=== PATIENT | male | born 1970 | race Two or more races ===

== ENCOUNTER 2019-08-15 19:28 | Observation (INO) | payer SELFPAY ==
[~2019-08-15] VITALS: Ht 165.1 cm; Wt 55.9 kg
[2019-08-15] MEDS ORDERED: IV NORMAL SALINE 1000ML BAG 1,000 ML IV SCH (19:58)
--- NOTE | 2019-08-15 20:03 | PHYS DOC ---
Past Medical History Past Medical History: No Pertinent History, CHF Past Surgical History: Other Additional Past Surgical Histo: "NECK SURGERY IN [place]" Smoking Status: Current Every Day Smoker Alcohol Use: Heavy General Adult EDM: Chief Complaint: CHEST PAIN HPI: HPI: Patient is a 49 year old male who presents with left chest pain that started this morning around 9:00 without radiation and is sharp. Patient states he is homeless but sleeps on a friend's couch nightly. 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 He does smoke cigarettes. He denies any other history or drug use. Patient denies abdominal pain, nausea, vomiting, diarrhea, fever, cough, dizziness, headache, LOC, vision changes, weakness. EMS gave the patient 324 mg of aspirin prior to arrival. EMS gave the patient 2 nitros and patient states there was some relief but he still rating his pain a 10 out of 10. Review of Systems: Review of Systems: Constitutional: Denies fever or chills. [] Eyes: Denies change in visual acuity. [] HENT: Denies nasal congestion or sore throat. [] Respiratory: Denies cough or shortness of breath. [] Cardiovascular: chest pain or denies edema. [] GI: Denies abdominal pain, nausea, vomiting, bloody stools or diarrhea. [] : Denies dysuria. [] Musculoskeletal: Denies back pain or joint pain. [] Integument: Denies rash. [] Neurologic: Denies headache, focal weakness or sensory changes. [] Endocrine: Denies polyuria or polydipsia. [] Lymphatic: Denies swollen glands. [] Psychiatric: Denies depression or anxiety. [] Heart Score: HEART Score for Chest Pain: HEART Score for Chest Pain Response (Comments) Value History Slighlty/Non-Suspicious 0 ECG Normal 0 Age >45 - < 65 1 Risk Factors 1 or 2 Risk Factors 1 Troponin < Normal Limit 0 Total 2 Risk Factors: Risk Factors: DM, Current or recent (<one month) smoker, HTN, HLP, family history of CAD, obesity. Risk Scores: Score 0 - 3: 2.5% MACE over next 6 weeks - Discharge Home Score 4 - 6: 20.3% MACE over next 6 weeks - Admit for Clinical Observation Score 7 - 10: 72.7% MACE over next 6 weeks - Early Invasive Strategies Physical Exam: PE: Constitutional: Well developed, well nourished, no acute distress, non-toxic appearance. [] HENT: Normocephalic, atraumatic, bilateral external ears normal, oropharynx moist, no oral exudates, nose normal. [] Eyes: PERRLA, EOMI, conjunctiva normal, no discharge. [] Neck: Normal range of motion, no tenderness, supple, no stridor. [] Cardiovascular:Heart rate regular rhythm, no murmur [] Lungs & Thorax: Bilateral upper breath sounds clear and lower diminished to auscultation [] Abdomen: Bowel sounds normal, soft, no tenderness, no masses, no pulsatile masses. [] Skin: Warm, dry, no erythema, no rash. [] Back: No tenderness, no CVA tenderness. [] Extremities: No tenderness, no cyanosis, no clubbing, ROM intact, no edema. [] Neurologic: Alert and oriented X 3, normal motor function, normal sensory function, no focal deficits noted. [] Psychologic: Affect normal, judgement normal, mood normal. [] Current Patient Data: Vital Signs: Vital Signs Date Time Temp Pulse Resp B/P (MAP) Pulse Ox O2 Delivery O2 Flow Rate FiO2 08/15/19 19:45 98.2 89 18 139/97 (111 82 Room Air 98.2 EKG: EK and read by Dr Storey as NSR and no STEMI[] Radiology/Procedures: Radiology/Procedures: [] Impression: [facility] [address] [place], [place] [id number] IMAGING REPORT Signed PATIENT: NAT CARRANZAACCOUNT: [id number] : 1970 LOCATION: ER AGE: 49 SEX: M EXAM STATUS: REG ER ORD. PHYSICIAN: LAWSON MATA APRN REASON: chest pain PROCEDURE: PORTABLE CHEST 1V EXAM: CHEST ONE VIEW. HISTORY: Chest pain. COMPARISON: None. FINDINGS: A frontal view of the chest is obtained. There are no confluent infiltrates. There is no pneumothorax or pleural effusion. The heart is not enlarged. Chronic bilateral rib fractures are noted. IMPRESSION: 1. No confluent infiltrates. Electronically signed by: Rik Phelps MD (08/15/2019 8:34 PM) [facility] DICTATED and SIGNED BY: DENISE PHELPS MD DATE: 08/15/192033 [facility] [address] [place] [address] IMAGING REPORT Signed PATIENT: NAT CARRANZAACCOUNT: [id number] : 1970 LOCATION: ER AGE: 49 SEX: M EXAM STATUS: REG ER ORD. PHYSICIAN: LAWSON MATA APRN REASON: ELEVATED LFT'S, HX ETOH PROCEDURE: CT ABD PELV W/ IV CONTRST ONLY CT abdomen and pelvis with contrast PQRS statement: CT scans at this facility use dose reduction including either automated exposure control, iterative reconstructions, and /or weight based radiation dosing via mA and kV modification when appropriate to reduce radiation dose to as low as reasonably achievable. Contrast: 75 mL Omnipaque 300 intravenous contrast. HISTORY: Elevated liver function tests. History of alcohol abuse. Abdomen findings: Coronary calcified plaque. Lung bases unremarkable. Lumbar disc disease with disc bulges contributing to spinal canal stenoses L4 L5 S1. Hypodense liver likely fatty. At the medial right hepatic lobe there is a 4 mm hypodense lesion coronal image 28 to small characterize per ACR guidelines no further workup is necessary, this is most likely small cyst or hemangioma. Spleen, pancreas, gallbladder, adrenal glands and left kidney unremarkable. Right renal oval 1.3 cm hypodensity is indeterminate with internal density of 25 units. Abdominal aortic calcified plaque. No abdominal fluid or adenopathy. Appendix is negative. There is wall thickening of the rectosigmoid colon and hypervascular mucosal enhancement consistent with colitis. Pelvis findings: Prominent distention urinary bladder. Rectosigmoid wall thickening and hypervascular mucosal enhancement. Prostate calcifications. No pelvic fluid or adenopathy. Bones unremarkable. IMPRESSION: 1. Distal colitis of the rectosigmoid colon. 2. Appendix is negative. 3. 1.3 cm right renal hypodense lesion with an internal density 25 units. This is indeterminate and could represent a hemorrhagic cyst or solid nodule. Per ACR guidelines consider further assessment with MR imaging. 4. Hypodense liver likely fatty. Electronically signed by: Yara Ruiz MD (08/15/2019 9:22 PM) [facility] DICTATED and SIGNED BY: YARA RUIZ MD DATE: 08/15/192121 Course & Med Decision Making: Course & Med Decision Making Pertinent Labs and Imaging studies reviewed. (See chart for details) Alert and oriented. Speaks in full clear sentences. Ambulatory with a steady gait. No extremity edema. Abdomen soft and nontender. Lungs are clear in upper lobes and diminished in lower lobes. Vital signs are within normal limits. Elevated troponin of 0.090. LFT's are elevated. Patient admitted to Dr Meade. [] Alba Disclaimer: Alba Disclaimer: This electronic medical record was generated, in whole or in part, using a voice recognition dictation system. 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
[2019-08-15 20:05] LABS: BASO # 0.1 x10^3/uL (0.0-0.2); BASO % 1 % (0-3); EOS % 1 % (0-3); HEMATOCRIT 37.9 % (39.0-53.0); HEMOGLOBIN 13.4 g/dL (13.0-17.5); LYMPH # 1.8 x10^3/uL (1.0-4.8); LYMPH % 37 % (24-48); MEAN CORPUSCULAR HEMOGLOBIN 37 pg (25-35); MEAN CORPUSCULAR HGB CONC 35 g/dL (31-37); MEAN CORPUSCULAR VOLUME 103 fL (79-100); MONO # 0.8 x10^3/uL (0.0-1.1); MONO % 16 % (0-9); NEUT # 2.2 x10^3/uL (1.8-7.7); NEUT % 45 % (31-73); PLATELET COUNT 80 x10^3/uL (140-400); RED BLOOD COUNT 3.67 x10^6/uL (4.30-5.70); RED CELL DISTRIBUTION WIDTH 13.1 % (11.5-14.5); WHITE BLOOD COUNT 4.9 x10^3/uL (4.0-11.0)
[2019-08-15 20:14] LABS: PROTHROMBIN TIME PATIENT 11.9 SEC (11.7-14.0)
[2019-08-15] MEDS ORDERED: fentaNYL PF VIAL 100 MCG/2 ML VIAL IVP ONE (20:15)
[2019-08-15 20:19] LABS: BILIRUBIN,URINE NEGATIVE (NEG); CLARITY,URINE CLEAR; COLOR,URINE YELLOW; NITRITE,URINE NEGATIVE (NEG); PH,URINE 6.5 (<5.0-8.0); PROTEIN,URINE NEGATIVE (NEG-TRACE); UROBILINOGEN,URINE 0.2 mg/dL (0.2 mg/dL)
[2019-08-15 20:21] LABS: CALCIUM 9.3 mg/dL (8.5-10.1); CREATININE 0.7 mg/dL (0.7-1.3); GFR 119.9; POTASSIUM 3.4 mmol/L (3.5-5.1)
[2019-08-15 20:24] LABS: BACTERIA,URINE 0 /HPF (0-FEW); RBC,URINE 0 /HPF (0-2); WBC,URINE 0 /HPF (0-4)
[2019-08-15 20:26] LABS: ALBUMIN 3.5 g/dL (3.4-5.0); ALBUMIN/GLOBULIN RATIO 1.1 (1.0-1.7); BARBITURATES NEG (NEG); BENZODIAZEPINES NEG (NEG); CANNABINOIDS NEG (NEG); COCAINE NEG (NEG); METHADONE NEG (NEG); OPIATES NEG (NEG); PHENCYCLIDINE NEG (NEG); TOTAL BILIRUBIN 0.5 mg/dL (0.2-1.0); TOTAL PROTEIN 6.8 g/dL (6.4-8.2)
[2019-08-15 20:27] LABS: AMPHETAMINE/METHAMPHETAMINE NEG (NEG)
[2019-08-15 20:34] LABS: PLT ESTIMATE DECREASED (ADEQUATE)
--- NOTE | 2019-08-15 20:37 | RAD ---
EXAM: CHEST ONE VIEW. HISTORY: Chest pain. COMPARISON: None. FINDINGS: A frontal view of the chest is obtained. There are no confluent infiltrates. There is no pneumothorax or pleural effusion. The heart is not enlarged. Chronic bilateral rib fractures are noted. IMPRESSION: 1. No confluent infiltrates. Electronically signed by: Rik Phelps MD (08/15/2019 8:34 PM) [facility]
[2019-08-15] MEDS ORDERED: IOHEXOL 300 MG/ML 100ML VIAL. IV ONE (21:00)
[2019-08-15] MEDS ORDERED: ONDANSETRON PF 4 MG/2 ML VIAL. IV PRN ×2 (21:15→21:30)
--- NOTE | 2019-08-15 21:25 | RAD ---
CT abdomen and pelvis with contrast PQRS statement: CT scans at this facility use dose reduction including either automated exposure control, iterative reconstructions, and /or weight based radiation dosing via mA and kV modification when appropriate to reduce radiation dose to as low as reasonably achievable. Contrast: 75 mL Omnipaque 300 intravenous contrast. HISTORY: Elevated liver function tests. History of alcohol abuse. Abdomen findings: Coronary calcified plaque. Lung bases unremarkable. Lumbar disc disease with disc bulges contributing to spinal canal stenoses L4 L5 S1. Hypodense liver likely fatty. At the medial right hepatic lobe there is a 4 mm hypodense lesion coronal image 28 to small characterize per ACR guidelines no further workup is necessary, this is most likely small cyst or hemangioma. Spleen, pancreas, gallbladder, adrenal glands and left kidney unremarkable. Right renal oval 1.3 cm hypodensity is indeterminate with internal density of 25 units. Abdominal aortic calcified plaque. No abdominal fluid or adenopathy. Appendix is negative. There is wall thickening of the rectosigmoid colon and hypervascular mucosal enhancement consistent with colitis. Pelvis findings: Prominent distention urinary bladder. Rectosigmoid wall thickening and hypervascular mucosal enhancement. Prostate calcifications. No pelvic fluid or adenopathy. Bones unremarkable. IMPRESSION: 1. Distal colitis of the rectosigmoid colon. 2. Appendix is negative. 3. 1.3 cm right renal hypodense lesion with an internal density 25 units. This is indeterminate and could represent a hemorrhagic cyst or solid nodule. Per ACR guidelines consider further assessment with MR imaging. 4. Hypodense liver likely fatty. Electronically signed by: Theo Morgan MD (08/15/2019 9:22 PM) [facility]
[2019-08-15] MEDS ORDERED: fentaNYL PF VIAL 100 MCG/2 ML VIAL IV PRN (21:30)
[2019-08-15] MEDS ORDERED: CONTRAST GIVEN. MC PRN (21:30)
[2019-08-15] MEDS ORDERED: CIPROFLOXACIN 400MG PREMIX 200 ML IV ONE (22:00)
[2019-08-15 23:15] VITALS: BP 145/93
[2019-08-16] VITALS (7 sets, daily range): BP systolic 122–162; BP diastolic 74–98
[2019-08-16] MEDS ORDERED: MORPHINE IR 15 MG TABLET PO PRN (04:15)
--- NOTE | 2019-08-16 07:15 | EKG ---
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
[2019-08-16] MEDS ORDERED: IPRATRPIUM/ALBUTEROL 0.5/2.5MG 3 ML NEBU. NEB SCH (08:00)
--- NOTE | 2019-08-16 08:19 | PDOC1 ---
History and Physical Date of Admission Date of Admission DATE: 08/16/19 TIME: 08:13 Identification/Chief Complaint Chief Complaint chest pain Source Source: Chart review, Patient History of Present Illness History of Present Illness Mr. Joyner, is a 49 year old male who presents with left chest pain that started this morning around 9:00 without radiation and is sharp. Patient states he is homeless but sleeps on a friend's couch nightly. 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 He does smoke cigarettes. He denies any other history or drug use. Patient denies abdominal pain, nausea, vomiting, diarrhea, fever, cough, dizziness, headache, LOC, vision changes, weakness. EMS gave the patient 324 mg of aspirin prior to arrival. EMS gave the patient 2 nitros and patient states there was some relief but he still rating his pain a 10 out of 10. Past Medical History Cardiovascular: No pertinent hx Pulmonary: No pertinent hx Infectious disease: No pertinent hx Renal/: No pertinent hx Family History Family History: No Significant Social History Smoke: No ALCOHOL: none Drugs: None Current Problem List Problem List Problems Medical Problems: (1) Elevated troponin Status: Acute Current Medications Current Medications Current Medications Sodium Chloride 1,000 ml @ 1,000 mls/hr Q1H IV Last administered on 08/15/19at 19:58; Start 08/15/19 at 19:58; Stop 08/15/19 at 20:57; Status DC Fentanyl Citrate (Fentanyl 2ml Vial) 50 mcg 1X ONCE IVP Last administered on 08/15/19at 20:16; Start 08/15/19 at 20:15; Stop 08/15/19 at 20:16; Status DC Iohexol (Omnipaque 300 Mg/ml) 75 ml 1X ONCE IV Last administered on 08/15/19at 21:06; Start 08/15/19 at 21:00; Stop 08/15/19 at 21:15; Status DC Ondansetron HCl (Zofran) 4 mg PRN Q8HRS PRN IV NAUSEA/VOMITING 1st choice; Start 08/15/19 at 21:15; Stop 08/16/19 at 21:14; Status Cancel Albuterol/ Ipratropium (Duoneb) 3 ml RTQID NEB ; Start 08/16/19 at 08:00; Stop 08/17/19 at 07:59; Status Cancel Info (CONTRAST GIVEN -- Rx MONITORING) 1 each PRN DAILY PRN MC SEE COMMENTS; Start 08/15/19 at 21:30; Stop 08/17/19 at 21:29 Ondansetron HCl (Zofran) 4 mg PRN Q8HRS PRN IV NAUSEA/VOMITING 1ST CHOICE; Start 08/15/19 at 21:30; Stop 08/16/19 at 21:29 Fentanyl Citrate (Fentanyl 2ml Vial) 50 mcg PRN Q1HR PRN IV SEVERE PAIN 7-10 Last administered on 08/15/19at 23:58; Start 08/15/19 at 21:30; Stop 08/16/19 at 21:29 Ciprofloxacin/ Dextrose 200 ml @ 200 mls/hr 1X ONCE IV Last administered on 08/16/19at 00:00; Start 08/15/19 at 22:00; Stop 08/15/19 at 22:59; Status DC Metronidazole 100 ml @ 100 mls/hr 1X ONCE IV ; Start 08/15/19 at 22:00; Stop 08/15/19 at 22:59; Status DC Morphine Sulfate (Morphine Ir) 15 mg PRN Q4HRS PRN PO SEVERE PAIN 7-10; Start 08/16/19 at 04:15 Pantoprazole Sodium (Protonix) 40 mg DAILYAC PO ; Start 08/16/19 at 08:30 Allergies Allergies: Coded Allergies: No Known Drug Allergies (Unverified , 08/15/19) ROS General: No: Chills, Night Sweats, Fatigue, Malaise, Appetite, Other PSYCHOLOGICAL ROS: No: Anxiety, Behavioral Disorder, Concentration difficultie, Decreased libido, Depression, Disorientation, Hallucinations, Hostility, Irritablity, Memory difficulties, Mood Swings, Obsessive thoughts, Physical abuse, Sexual abuse, Sleep disturbances, Suicidal ideation, Other Eyes: No Blurry vision, No Decreased vision, No Double vision, No Dry eyes, No Excessive tearing, No Eye Pain, No Itchy Eyes, No Loss of vision, No Photophobia, No Scotomata, No Uses contacts, No Uses glasses, No Other HEENT: No: Heacaches, Visual Changes, Hearing change, Nasal congestion, Nasal discharge, Oral lesions, Sinus pain, Sore Throat, Epistaxis, Sneezing, Snoring, Tinnitus, Vertigo, Vocal changes, Other Respiratory: No: Cough, Hemoptysis, Orthopnea, Pleuritic Pain, Shortness of breath, SOB with excertion, Sputum Changes, Stridor, Tachypnea, Wheezing, Other Gastrointestinal: No Nausea, No Vomiting, No Abdominal Pain, No Diarrhea, No Constipation, No Melena, No Hematochezia, No Other Genitourinary: No Dysuria, No Frequency, No Incontinence, No Hematuria, No Retention, No Discharge, No Urgency, No Pain, No Flank Pain, No Other, No , No , No , No , No , No , No Musculoskeletal: No Gait Disturbance, No Joint Pain, No Joint Stiffness, No Joint Swelling, No Muscle Pain, No Muscular Weakness, No Pain In:, No Swelling In:, No Other Neurological: No Behavorial Changes, No Bowel/Bladder ControlChng, No Confusion, No Dizziness, No Gait Disturbance, No Headaches, No Impaired Coord/balance, No Memory Loss, No Numbness/Tingling, No Seizures, No Speech Problems, No Tremors, No Visual Changes, No Weakness, No Other Skin: No Dry Skin, No Eczema, No Hair Changes, No Lumps, No Mole Changes, No Mottling, No Nail Changes, No Pruritus, No Rash, No Skin Lesion Changes, No Other, No Acne Physical Exam General: Alert, Oriented X3, Cooperative, No acute distress HEENT: PERRLA, EOMI, Mucous membr. moist/pink Lungs: Clear to auscultation Heart: S1S2, RRR, no murmurs Abdomen: Normal bowel sounds, Soft Extremities: No clubbing, Normal pulses Skin: No rashes, No breakdown Neuro: Normal speech, Normal tone, Cranial nerves 3-12 NL Vitals Vitals Vital Signs Date Time Temp Pulse Resp B/P (MAP) Pulse Ox O2 Delivery O2 Flow Rate FiO2 08/16/19 03:10 98.2 86 14 122/74 (90) 97 Room Air 98.2 Labs Labs Laboratory Tests Test 08/15/19 19:50 08/16/19 04:35 White Blood Count 4.9 x10^3/uL (4.0-11.0) Red Blood Count 3.67 x10^6/uL (4.30-5.70) Hemoglobin 13.4 g/dL (13.0-17.5) Hematocrit 37.9 % (39.0-53.0) Mean Corpuscular Volume 103 fL (79-100) Mean Corpuscular Hemoglobin 37 pg (25-35) Mean Corpuscular Hemoglobin Concent 35 g/dL (31-37) Red Cell Distribution Width 13.1 % (11.5-14.5) Platelet Count 80 x10^3/uL (140-400) Neutrophils (%) (Auto) 45 % (31-73) Lymphocytes (%) (Auto) 37 % (24-48) Monocytes (%) (Auto) 16 % (0-9) Eosinophils (%) (Auto) 1 % (0-3) Basophils (%) (Auto) 1 % (0-3) Neutrophils # (Auto) 2.2 x10^3/uL (1.8-7.7) Lymphocytes # (Auto) 1.8 x10^3/uL (1.0-4.8) Monocytes # (Auto) 0.8 x10^3/uL (0.0-1.1) Eosinophils # (Auto) 0.0 x10^3/uL (0.0-0.7) Basophils # (Auto) 0.1 x10^3/uL (0.0-0.2) Platelet Estimate Decreased (ADEQUATE) Prothrombin Time 11.9 SEC (11.7-14.0) Prothromb Time International Ratio 0.9 (0.8-1.1) Urine Collection Type Unknown Urine Color Yellow Urine Clarity Clear Urine pH 6.5 (<5.0-8.0) Urine Specific [place] <=1.005 (1.000-1.030) Urine Protein Negative mg/dL (NEG-TRACE) Urine Glucose (UA) Negative mg/dL (NEG) Urine Ketones (Stick) Negative mg/dL (NEG) Urine Blood Negative (NEG) Urine Nitrite Negative (NEG) Urine Bilirubin Negative (NEG) Urine Urobilinogen Dipstick 0.2 mg/dL (0.2 mg/dL) Urine Leukocyte Esterase Negative (NEG) Urine RBC 0 /HPF (0-2) Urine WBC 0 /HPF (0-4) Urine Bacteria 0 /HPF (0-FEW) Sodium Level 133 mmol/L (136-145) Potassium Level 3.4 mmol/L (3.5-5.1) Chloride Level 93 mmol/L (98-107) Carbon Dioxide Level 25 mmol/L (21-32) Anion Gap 15 (6-14) Blood Urea Nitrogen 5 mg/dL (8-26) Creatinine 0.7 mg/dL (0.7-1.3) Estimated GFR (Cockcroft-Gault) 119.9 BUN/Creatinine Ratio 7 (6-20) Glucose Level 166 mg/dL (70-99) Calcium Level 9.3 mg/dL (8.5-10.1) Total Bilirubin 0.5 mg/dL (0.2-1.0) Aspartate Amino Transf (AST/SGOT) 106 U/L (15-37) Alanine Aminotransferase (ALT/SGPT) 86 U/L (16-63) Alkaline Phosphatase 73 U/L (46-116) Troponin I Quantitative 0.090 ng/mL (0.000-0.055) 0.095 ng/mL (0.000-0.055) JY-Kob-N-Type Natriuretic Peptide 16 pg/mL (0-124) Total Protein 6.8 g/dL (6.4-8.2) Albumin 3.5 g/dL (3.4-5.0) Albumin/Globulin Ratio 1.1 (1.0-1.7) Lipase 453 U/L (73-393) Urine Opiates Screen Neg (NEG) Urine Methadone Screen Neg (NEG) Urine Barbiturates Neg (NEG) Urine Phencyclidine Screen Neg (NEG) Urine Amphetamine/Methamphetamine Neg (NEG) Urine Benzodiazepines Screen Neg (NEG) Urine Cocaine Screen Neg (NEG) Urine Cannabinoids Screen Neg (NEG) Ethyl Alcohol Level 464 mg/dL (0-10) Urine Ethyl Alcohol Pos (NEG) Laboratory Tests Test 08/15/19 19:50 08/16/19 04:35 White Blood Count 4.9 x10^3/uL (4.0-11.0) Red Blood Count 3.67 x10^6/uL (4.30-5.70) Hemoglobin 13.4 g/dL (13.0-17.5) Hematocrit 37.9 % (39.0-53.0) Mean Corpuscular Volume 103 fL (79-100) Mean Corpuscular Hemoglobin 37 pg (25-35) Mean Corpuscular Hemoglobin Concent 35 g/dL (31-37) Red Cell Distribution Width 13.1 % (11.5-14.5) Platelet Count 80 x10^3/uL (140-400) Neutrophils (%) (Auto) 45 % (31-73) Lymphocytes (%) (Auto) 37 % (24-48) Monocytes (%) (Auto) 16 % (0-9) Eosinophils (%) (Auto) 1 % (0-3) Basophils (%) (Auto) 1 % (0-3) Neutrophils # (Auto) 2.2 x10^3/uL (1.8-7.7) Lymphocytes # (Auto) 1.8 x10^3/uL (1.0-4.8) Monocytes # (Auto) 0.8 x10^3/uL (0.0-1.1) Eosinophils # (Auto) 0.0 x10^3/uL (0.0-0.7) Basophils # (Auto) 0.1 x10^3/uL (0.0-0.2) Platelet Estimate Decreased (ADEQUATE) Prothrombin Time 11.9 SEC (11.7-14.0) Prothromb Time International Ratio 0.9 (0.8-1.1) Urine Collection Type Unknown Urine Color Yellow Urine Clarity Clear Urine pH 6.5 (<5.0-8.0) Urine Specific [place] <=1.005 (1.000-1.030) Urine Protein Negative mg/dL (NEG-TRACE) Urine Glucose (UA) Negative mg/dL (NEG) Urine Ketones (Stick) Negative mg/dL (NEG) Urine Blood Negative (NEG) Urine Nitrite Negative (NEG) Urine Bilirubin Negative (NEG) Urine Urobilinogen Dipstick 0.2 mg/dL (0.2 mg/dL) Urine Leukocyte Esterase Negative (NEG) Urine RBC 0 /HPF (0-2) Urine WBC 0 /HPF (0-4) Urine Bacteria 0 /HPF (0-FEW) Sodium Level 133 mmol/L (136-145) Potassium Level 3.4 mmol/L (3.5-5.1) Chloride Level 93 mmol/L (98-107) Carbon Dioxide Level 25 mmol/L (21-32) Anion Gap 15 (6-14) Blood Urea Nitrogen 5 mg/dL (8-26) Creatinine 0.7 mg/dL (0.7-1.3) Estimated GFR (Cockcroft-Gault) 119.9 BUN/Creatinine Ratio 7 (6-20) Glucose Level 166 mg/dL (70-99) Calcium Level 9.3 mg/dL (8.5-10.1) Total Bilirubin 0.5 mg/dL (0.2-1.0) Aspartate Amino Transf (AST/SGOT) 106 U/L (15-37) Alanine Aminotransferase (ALT/SGPT) 86 U/L (16-63) Alkaline Phosphatase 73 U/L (46-116) Troponin I Quantitative 0.090 ng/mL (0.000-0.055) 0.095 ng/mL (0.000-0.055) XC-Uiv-F-Type Natriuretic Peptide 16 pg/mL (0-124) Total Protein 6.8 g/dL (6.4-8.2) Albumin 3.5 g/dL (3.4-5.0) Albumin/Globulin Ratio 1.1 (1.0-1.7) Lipase 453 U/L (73-393) Urine Opiates Screen Neg (NEG) Urine Methadone Screen Neg (NEG) Urine Barbiturates Neg (NEG) Urine Phencyclidine Screen Neg (NEG) Urine Amphetamine/Methamphetamine Neg (NEG) Urine Benzodiazepines Screen Neg (NEG) Urine Cocaine Screen Neg (NEG) Urine Cannabinoids Screen Neg (NEG) Ethyl Alcohol Level 464 mg/dL (0-10) Urine Ethyl Alcohol Pos (NEG) VTE Prophylaxis Ordered VTE Prophylaxis Devices: No VTE Pharmacological Prophylaxi: Yes Assessment/Plan Assessment/Plan alcohol abuse acute toxic encephalopathy tobacco use disorder chest pain, angina, Justicifation of Admission Dx: Justifications for Admission: Justification of Admission Dx: Yes (ELEVATED TROPONIN) FELICIA NATHAN MD Aug 16, 2019 08:19
[2019-08-16] MEDS ORDERED: MORPHINE SULFATE 4 MG/ML VIAL. IV PRN (09:00)
--- NOTE | 2019-08-16 09:03 | PDOC2 ---
STEFANIA BRANTLEY HYDROELECTRIC STATION OPERATOR 08/16/19 0903: CARDIAC CONSULT DATE OF CONSULT Date of Consult DATE: 08/16/19 TIME: 08:47 REASON FOR CONSULT Reason for Consult: Elevated troponin REFERRING PHYSICIAN Referring Physician: Marissa HISTORY OF PRESENT ILLNESS HISTORY OF PRESENT ILLNESS This is a 49 yo male admitted for complains of chest pain and passing out. [place] the park and [place] and was drinking beer and passed out and possibly landed on his side. No bruising to left rib cage but tender with palpation and positional changes. Per chart review he was at [facility] mid June, initially found in an alleyway intoxicated with alcohol and in ICU for few days for ETOH withdrawal treatment. He continues to drink significant amount of beer but denies hard li quor and no recreational drug use. No SOA, palpitations. No hx of CV diseases. No hx PUD, VTE or arrhythmias. PAST MEDICAL HISTORY Past Medical History Alcoholism, thombocytopenia Heme/Onc: Other (thormbocytopenia) PAST SURGICAL HISTORY Past Surgical History: Arthroscopy (knee) FAMILY HISTORY Family History: Family History Unknown SOCIAL HISTORY Smoke: <1 pack per day ALCOHOL: heavy Drugs: None Lives: Alone (homeless) CURRENT MEDICATIONS CURRENT MEDICATIONS Current Medications Medications (Trade) Dose Ordered Sig/Tyler Route PRN Reason Start Time Stop Time Status Last Admin Dose Admin Sodium Chloride 1,000 ml @ 1,000 mls/hr Q1H IV 08/15/19 19:58 08/15/19 20:57 DC 08/15/19 19:58 Fentanyl Citrate (Fentanyl 2ml Vial) 50 mcg 1X ONCE IVP 08/15/19 20:15 08/15/19 20:16 DC 08/15/19 20:16 Iohexol (Omnipaque 300 Mg/ml) 75 ml 1X ONCE IV 08/15/19 21:00 08/15/19 21:15 DC 08/15/19 21:06 Fentanyl Citrate (Fentanyl 2ml Vial) 50 mcg PRN Q1HR PRN IV SEVERE PAIN 7-10 08/15/19 21:30 08/16/19 21:29 08/15/19 23:58 Ciprofloxacin/ Dextrose 200 ml @ 200 mls/hr 1X ONCE IV 08/15/19 22:00 08/15/19 22:59 DC 08/16/19 00:00 ALLERGIES ALLERGIES: Coded Allergies: No Known Drug Allergies (Unverified , 08/15/19) ROS Review of System 14v point ROS evaluated with pertinent positives noted per HPI PHYSICAL EXAM General: Alert, Oriented X3, Cooperative, No acute distress HEENT: Atraumatic, Mucous membr. moist/pink Lungs: Clear to auscultation, Normal air movement Heart: Regular rate (SR), Normal S1, Normal S2, No murmurs Abdomen: Soft, No tenderness Extremities: No cyanosis, No edema Skin: No breakdown, No significant lesion Neuro: Normal speech, Sensation intact, Other (fine hand tremors) Psych/Mental Status: Mental status NL, Mood NL MUSCULOSKELETAL: Osteoarthritic changes both hands VITALS/I&O VITALS/I&O: Vital Signs Date Time Temp Pulse Resp B/P (MAP) Pulse Ox O2 Delivery O2 Flow Rate FiO2 08/16/19 07:00 98.2 76 16 142/86 (104) 97 Room Air 98.2 I & O 08/15/19 08/15/19 08/16/19 15:00 23:00 07:00 Intake Total 920 ml Output Total 1350 ml Balance -430 ml LABS Lab: Laboratory Tests Test 08/15/19 19:50 08/16/19 04:35 White Blood Count 4.9 x10^3/uL (4.0-11.0) Red Blood Count 3.67 x10^6/uL (4.30-5.70) L Hemoglobin 13.4 g/dL (13.0-17.5) Hematocrit 37.9 % (39.0-53.0) L Mean Corpuscular Volume 103 fL (79-100) H Mean Corpuscular Hemoglobin 37 pg (25-35) H Mean Corpuscular Hemoglobin Concent 35 g/dL (31-37) Red Cell Distribution Width 13.1 % (11.5-14.5) Platelet Count 80 x10^3/uL (140-400) L Neutrophils (%) (Auto) 45 % (31-73) Lymphocytes (%) (Auto) 37 % (24-48) Monocytes (%) (Auto) 16 % (0-9) H Eosinophils (%) (Auto) 1 % (0-3) Basophils (%) (Auto) 1 % (0-3) Neutrophils # (Auto) 2.2 x10^3/uL (1.8-7.7) Lymphocytes # (Auto) 1.8 x10^3/uL (1.0-4.8) Monocytes # (Auto) 0.8 x10^3/uL (0.0-1.1) Eosinophils # (Auto) 0.0 x10^3/uL (0.0-0.7) Basophils # (Auto) 0.1 x10^3/uL (0.0-0.2) Platelet Estimate Decreased (ADEQUATE) Prothrombin Time 11.9 SEC (11.7-14.0) Prothrombin Time INR 0.9 (0.8-1.1) Urine Collection Type Unknown Urine Color Yellow Urine Clarity Clear Urine pH 6.5 (<5.0-8.0) Urine Specific [place] <=1.005 (1.000-1.030) Urine Protein Negative mg/dL (NEG-TRACE) Urine Glucose (UA) Negative mg/dL (NEG) Urine Ketones (Stick) Negative mg/dL (NEG) Urine Blood Negative (NEG) Urine Nitrite Negative (NEG) Urine Bilirubin Negative (NEG) Urine Urobilinogen Dipstick 0.2 mg/dL (0.2 mg/dL) Urine Leukocyte Esterase Negative (NEG) Urine RBC 0 /HPF (0-2) Urine WBC 0 /HPF (0-4) Urine Bacteria 0 /HPF (0-FEW) Sodium Level 133 mmol/L (136-145) L Potassium Level 3.4 mmol/L (3.5-5.1) L Chloride Level 93 mmol/L (98-107) L Carbon Dioxide Level 25 mmol/L (21-32) Anion Gap 15 (6-14) H Blood Urea Nitrogen 5 mg/dL (8-26) L Creatinine 0.7 mg/dL (0.7-1.3) Estimated GFR (Cockcroft-Gault) 119.9 BUN/Creatinine Ratio 7 (6-20) Glucose Level 166 mg/dL (70-99) H Calcium Level 9.3 mg/dL (8.5-10.1) Total Bilirubin 0.5 mg/dL (0.2-1.0) Aspartate Amino Transferase (AST) 106 U/L (15-37) H Alanine Aminotransferase (ALT) 86 U/L (16-63) H Alkaline Phosphatase 73 U/L (46-116) Troponin I Quantitative 0.090 ng/mL (0.000-0.055) 0.095 ng/mL (0.000-0.055) RD-Agg-U-Type Natriuretic Peptide 16 pg/mL (0-124) Total Protein 6.8 g/dL (6.4-8.2) Albumin 3.5 g/dL (3.4-5.0) Albumin/Globulin Ratio 1.1 (1.0-1.7) Lipase 453 U/L (73-393) H Urine Opiates Screen Neg (NEG) Urine Methadone Screen Neg (NEG) Urine Barbiturates Neg (NEG) Urine Phencyclidine Screen Neg (NEG) Urine Amphetamine/Methamphetamine Neg (NEG) Urine Benzodiazepines Screen Neg (NEG) Urine Cocaine Screen Neg (NEG) Urine Cannabinoids Screen Neg (NEG) Ethyl Alcohol Level 464 mg/dL (0-10) *H Urine Ethyl Alcohol Pos (NEG) Laboratory Tests 08/15/19 19:50 Laboratory Tests 08/15/19 19:50 ECHOCARDIOGRAM ECHOCARDIOGRAM 07/05/2019 [facility] 1. Normal left ventricular size and systolic function. LVEF 55 to 65% 2. Normal right ventricular size and systolic function 3. No hemodynamically significant valve disease ASSESSMENT/PLAN ASSESSMENT/PLAN 1. Atypical CP: MSK due to fall. no mention of rib fracture per CT 2. Syncope with fall related to severe ETOH intoxication 3. Alcohol abuse with DT symptoms 4. Mild troponin elevation: no acute EKG changes. Suspect demand mediated with heavy alcohol use and fall with possible rhabdo. Recent TTE unremarkable 5. Chronic Transaminitis/macrocytosis/thrombocytopenia with liver changes secondary to ETOH abuse 6. Tobaccoism with suspected COPD 7. Colitis: per PCP 8. HLP Recommendations 1. SS consult regarding homelessness 2. lipids, check Mg. Maintain hydration. CIWA protocol per PCP. Replace K and Mg as warranted. Check CK. 3. Will need detox, smoking cessation 4. Supportive care. Start on PPI JHONNY ANDRADE MD 08/16/19 1612: CARDIAC CONSULT ASSESSMENT/PLAN ASSESSMENT/PLAN Patient seen and examined. Agree with above nurse practitioner note. No further cardiovascular input at this time. Supportive care. Please call with a ny further questions. STEFANIA BRANTLEY APRN Aug 16, 2019 09:03 JHONNY ANDRADE MD Aug 16, 2019 16:12
[2019-08-16 09:12] LABS: CREATININE 0.6 mg/dL (0.7-1.3); GFR 143.2; MAGNESIUM 1.6 mg/dL (1.8-2.4); POTASSIUM 3.5 mmol/L (3.5-5.1)
[2019-08-16] MEDS: PANTOPRAZOLE 40 MG TABLET.DR. PO SCH (09:25)
[2019-08-16] MEDS: LIDOCAINE (700MG/PATCH) PATCH. TD SCH (09:25)
[2019-08-16] MEDS: MULTIVIT INFUSN,ADULT 4,VIT K 10 ML, THIAMINE INJ 100 MG, FOLIC ACID INJ 1 MG in IV NOR... IV SCH (09:29)
[2019-08-16] MEDS ORDERED: MAGNESIUM SULFATE 2GM 50 ML IV ONE (11:30)
--- NOTE | 2019-08-16 13:10 | NUR ---
SS following for discharge planning. SS reviewed pt chart and discussed with pt RN. Pt is homeless but is currently staying with a friend on his couch. Pt is currently on room air. PAT team referral made for ETOH. Angelito from PAT team met with pt and provided resources for RAADAC, AA, and RSI. Pt will discharge to home when medically stable. SS will continue to follow for discharge planning.
[2019-08-16] MEDS ORDERED: PATCH REMOVAL. MC SCH ×2 (21:00)
[2019-08-16] MEDS ORDERED: LIDOCAINE (700MG/PATCH) PATCH. TD SCH (21:00)
[2019-08-17 03:06] VITALS: BP 144/97
[2019-08-17 07:00] VITALS: BP 154/93
[2019-08-17] MEDS ORDERED: PANTOPRAZOLE 40 MG TABLET.DR. PO SCH (07:30)
[2019-08-17] MEDS: PANTOPRAZOLE 40 MG TABLET.DR. PO SCH (07:42)
[2019-08-17] MEDS: LIDOCAINE (700MG/PATCH) PATCH. TD SCH (09:07)
[2019-08-17] MEDS: MULTIVIT INFUSN,ADULT 4,VIT K 10 ML, THIAMINE INJ 100 MG, FOLIC ACID INJ 1 MG in IV NOR... IV SCH (09:08)
[2019-08-17 11:00] VITALS: BP 159/95
--- NOTE | 2019-08-17 12:13 | DS ---
DATE OF DISCHARGE: 08/17/2019 ADMISSION DIAGNOSIS: Elevated troponin. DISCHARGE DIAGNOSES: 1. Resolving chest pain with slightly elevated troponin. 2. Alcohol issues. CONSULTS: Cardiology. PROCEDURES: None. HOSPITAL COURSE: The patient is a pleasant 49-year-old male who presented with chest pain. He was noted to have a slightly elevated troponin. He was admitted. We did a full cardiac workup, it is all negative. Today, I saw him and examined him. His heart tones are normal. Lungs are clear. Abdomen is soft. He wants to go home. I discussed the case with the nurse. We plan to discharge. DISPOSITION: Home. ACTIVITY: As tolerated. DIET: Low sodium. MEDICATIONS: Please see the MRAD. TOTAL TIME: 31 minutes. CYNTHIA VILLAREAL DO DR: PHIL/derrick JOB#: [id number] / [id number]
--- NOTE | 2019-08-17 15:01 | NUR ---
Discharge Note: JANIS CARRAN[facility] Discharge instructions and discharge home medications reviewed with Patient and a copy given. All questions have been answered and understanding verbalized. The following instructions and handouts were given: discharge instructions,new prescription, education and follow up recommendations. Discontinued lines and drains: Peripheral IV discontinued intact. Patient discharged to Home or Self Care with Self via Wheelchair off unit by FILLER SHAKER.
== END 2019-08-17 15:04 | disposition home or self-care (01) ==
LOC: ER 19:28 → 2 SOUTH 20:59 → 4 NORTH 08-16 16:38
PROVIDERS: ADMIT Internal Medicine; ATTEND Internal Medicine
DX: R07.89 Other chest pain (principal); I20.9 Angina pectoris, unspecified; G92 Toxic encephalopathy; F10.239 Alcohol dependence with withdrawal, unspecified; F10.229 Alcohol dependence with intoxication, unspecified; D75.89 Other specified diseases of blood and blood-forming organs; D69.6 Thrombocytopenia, unspecified; E78.5 Hyperlipidemia, unspecified; K52.9 Noninfective gastroenteritis and colitis, unspecified; M51.9 Unspecified thoracic, thoracolumbar and lumbosacral intervertebral disc disorder; N42.89 Other specified disorders of prostate; F17.210 Nicotine dependence, cigarettes, uncomplicated; Z59.0 Homelessness; W19.XXXA Unspecified fall, initial encounter; Y93.89 Activity, other specified; Y92.89 Other specified places as the place of occurrence of the external cause; Y99.8 Other external cause status; Y90.9 Presence of alcohol in blood, level not specified
CPT/HCPCS: 36415; 71045; 74177; 80048; 80053; 80061; 80307; 81001; 82550; 83690; 83735; 83880; 84484; 85025; 85610; 93005; 96365; 96366; 96367; 96368; 96375; 96376; 99285; G0378; G0480; J0744; J3010; J3411; J3475; J3490; J7030; Q9967; G0379